=== PATIENT | female | born 1970 | race African-American/Black ===

== ENCOUNTER 2019-01-23 18:17 | Inpatient (IN) ==
[2019-01-23] MEDS ORDERED: Tetanus/Diphtheria Toxoid Adult Vaccine Inj 0.5 ML Vial IM ONE (20:13)
--- NOTE | 2019-01-23 20:32 | ED ---
HPI General Chief complaint: Extremity Injury, Lower Stated complaint: left knee pain Time Seen by Provider: 01/23/19 20:03 Source: patient Mode of arrival: ambulatory Limitations: no limitations History of Present Illness HPI narrative: 48yo F with PMH of lyme disease and arthritis here with c/o left knee pain after fall onto left knee while going up stairs today. Said she also hit her right tibia and has some pain there but pain is mainly in left knee. Unable to ambulate after. Said her patella was out and she pushed it back. Denies any head injury, LOC, chest pain, sob, n/v, abdominal pain, focal weakness. Related Data Home Medications Medication Instructions Recorded Confirmed omeprazole magnesium [Prilosec OTC] 20 mg PO DAILY 01/23/19 01/23/19 Previous Rx's Medication Instructions Recorded hydrocodone-acetaminophen [[place]] 1 tab PO Q6H #10 tab 01/25/19 Allergies Allergy/AdvReac Type Severity Reaction Status Date / Time penicillin G Allergy Mild HIVES Unverified 07/11/17 22:38 Review of Systems ROS: all other systems reviewed are negative [facility] Medical History Medical History GERD (gastroesophageal reflux disease) (Acute) Lyme disease (Acute) Family History Family History Mother Pancreatic cancer Social History Social History Substance History: No History of Abuse Second Hand Smoke Exposure: No Smoking Status: Current every day smoker Tobacco Type: Cigarettes How Often Do You Have a Drink Containing Alcohol: 2 to 4 times a month Recent Travel in [facility] within the Last 8 Weeks: No Recent Out of Country Travel within the Last 8 Weeks: No Exam Narrative Exam Narrative: GENERAL: 48yo F in moderate distress. SKIN: Focused skin assessment warm/dry. HEAD: Atraumatic. Normocephalic. EYES: Pupils equal and round. No scleral icterus. No injection or drainage. ENT: No nasal bleeding or discharge. Mucous membranes pink and moist. NECK: Trachea midline. No JVD. CARDIOVASCULAR: Regular rate and rhythm. No murmur appreciated. RESPIRATORY: No accessory muscle use. Clear to auscultation. Breath sounds equal bilaterally. GASTROINTESTINAL: Abdomen soft, non-tender, nondistended. MUSCULOSKELETAL: LLE: +Edema in left knee with some abrasions. TTP diffusely. DP 2+. Sensation intact. RLE: +Mild ttp right mid tibia with abrasions. DP 2+. Sensation intact. No ttp right knee. NEUROLOGICAL: Awake and alert. No obvious cranial nerve deficits. Motor grossly within normal limits. Normal speech. PSYCHIATRIC: Appropriate mood and affect; insight and judgment normal. Course Reevaluation(s) Reevaluation #1: I reviewed the patient's history, exam. Patient has a closed injury. Patient has a left patellar fracture with over 2 cm separation. I spoke with Dr. Garcia the orthopedist. She agreed to be the lactation consultant. I spoke with Dr. Moralez who has agreed to admit the patient. Time: 22:37 Initial Documented Vital Signs Temperature 98.3 F 01/23/19 18:24 Pulse Rate 111 H 01/23/19 18:24 Respiratory Rate 22 01/23/19 18:24 Blood Pressure 162/97 H 01/23/19 18:24 Pulse Oximetry 97 01/23/19 18:24 Last Documented Vital Signs Temperature 98.1 F 01/25/19 16:00 Pulse Rate 76 01/25/19 16:00 Respiratory Rate 19 01/25/19 16:00 Blood Pressure 136/71 01/25/19 16:00 Pulse Oximetry 97 01/25/19 16:00 Medical Decision Making MDM Narrative Medical decision making narrative: 48yo F with left knee pain after fall today. She does have alcohol on breath and admits to drinking 2 drinks at dinner but is clinically sober. Will obtain xray left knee and right tib/fib and update tetanus. Pt given percocet. Seen at [facility] and will be transfer to results pending and my PA will reevaluate and review results. Medical Screen Exam Complete: Yes Emergency Medical Condition: Yes Differential Diagnosis Differential Diagnosis: Ligament injury vs. contusion vs. fracture Lab Data Result diagrams: 01/24/19 06:45 01/24/19 06:45 Lab Results 01/23/19 01/23/19 01/23/19 Range/Units 22:16 22:16 22:16 WBC 8.3 (4.0-11.0) th/mm3 RBC 5.47 H (4.00-5.30) mil/mm3 Hgb 17.1 H (11.6-15.3) gm/dL Hct 49.3 H (35.0-46.0) % MCV 90.0 (80.0-100.0) fL MCH 31.3 (27.0-34.0) pg MCHC 34.7 (32.0-36.0) % RDW 14.1 (11.6-17.2) % Plt Count 382 (150-450) th/mm3 MPV 8.3 (7.0-11.0) fL Neut % (Auto) (16.0-70.0) % Lymph % (Auto) (9.0-44.0) % Maries % (Auto) (0.0-8.0) % Eos % (Auto) (0.0-4.0) % Baso % (Auto) (0.0-2.0) % Neut # (Auto) (1.8-7.7) th/mm3 Lymph # (Auto) (1.0-4.8) th/mm3 Maries # (Auto) (0.0-0.9) th/mm3 Eos # (Auto) (0.0-0.4) th/mm3 Baso # (Auto) (0.0-0.2) th/mm3 WBC Differential Differential Comment PT 9.9 (9.8-11.6) sec INR 1.0 Ratio APTT 28.0 (23.4-31.7) sec Sodium 145 (136-145) meq/L Potassium 4.2 (3.5-5.1) meq/L Chloride 110 H (98-107) meq/L Carbon Dioxide 29.1 (21.0-32.0) meq/L Anion Gap 6 (5-15) meq/L BUN 6 L (7-18) mg/dL Creatinine 0.60 (0.50-1.00) mg/dL Estimated GFR Greater than 89 (>89) mL/min Random Glucose 96 (74-106) mg/dL Calcium 8.8 (8.5-10.1) mg/dL Total Bilirubin (0.2-1.0) mg/dL AST (15-37) U/L ALT (10-53) U/L Alkaline Phosphatase (45-117) U/L Total Protein (6.4-8.2) g/dL Albumin (3.4-5.0) g/dL Blood Type Antibody Screen 01/23/19 01/24/19 01/24/19 Range/Units 22:16 06:45 06:45 WBC 9.5 (4.0-11.0) th/mm3 RBC 4.48 (4.00-5.30) mil/mm3 Hgb 14.2 D (11.6-15.3) gm/dL Hct 41.7 (35.0-46.0) % MCV 93.1 (80.0-100.0) fL MCH 31.6 (27.0-34.0) pg MCHC 34.0 (32.0-36.0) % RDW 13.9 (11.6-17.2) % Plt Count 313 (150-450) th/mm3 MPV 8.6 (7.0-11.0) fL Neut % (Auto) 54.8 (16.0-70.0) % Lymph % (Auto) 36.0 (9.0-44.0) % Maries % (Auto) 7.9 (0.0-8.0) % Eos % (Auto) 0.8 (0.0-4.0) % Baso % (Auto) 0.5 (0.0-2.0) % Neut # (Auto) 5.2 (1.8-7.7) th/mm3 Lymph # (Auto) 3.4 (1.0-4.8) th/mm3 Maries # (Auto) 0.7 (0.0-0.9) th/mm3 Eos # (Auto) 0.1 (0.0-0.4) th/mm3 Baso # (Auto) 0.0 (0.0-0.2) th/mm3 WBC Differential . Differential Comment Auto diff final PT (9.8-11.6) sec INR Ratio APTT (23.4-31.7) sec Sodium 143 (136-145) meq/L Potassium 3.6 (3.5-5.1) meq/L Chloride 109 H (98-107) meq/L Carbon Dioxide 25.2 (21.0-32.0) meq/L Anion Gap 9 (5-15) meq/L BUN 6 L (7-18) mg/dL Creatinine 0.58 (0.50-1.00) mg/dL Estimated GFR Greater than 89 (>89) mL/min Random Glucose 95 (74-106) mg/dL Calcium 8.4 L (8.5-10.1) mg/dL Total Bilirubin 0.5 (0.2-1.0) mg/dL AST 15 (15-37) U/L ALT 19 (10-53) U/L Alkaline Phosphatase 79 (45-117) U/L Total Protein 7.2 (6.4-8.2) g/dL Albumin 3.5 (3.4-5.0) g/dL Blood Type AB Negative Antibody Screen Negative Imaging Data Radiologist's impression: Knee X-Ray 01/23/19 20:13 CONCLUSION: Fracture of the mid to lower patella with comminution of the lower fragment. Separation of fragments as above. Chest X-Ray 01/23/19 21:55 CONCLUSION: No acute cardiopulmonary disease Knee X-Ray 01/24/19 00:00 CONCLUSION: Patellar fracture. Discharge Plan Discharge Disposition Patient Disposition: ED Admit(ED Internal Use Only) Discharge Condition Condition: Stable Discharge Order Discharge Orders: Discharge Order (Routine); Ordered 01/25/19 Ordered By: Tee Hua Orthopedic Clear for Discharge (Routine); Ordered 01/25/19 Ordered By: Tee Hua ED Use Only Admit Order (Routine); Ordered 01/23/19 Ordered By: Tylor Woodward Discharge Details Diagnosis: Closed fracture of left patella Physicians Team ED Provider: Nicki Harrington ED Midlevel Provider: Tylor Woodward Primary Care Provider: Jovanni Castaneda III Attending Provider: Dianne Ellison Other Providers: Katalina Garcia Status ED Status: Left Department Discharge Information Discharge Date/Time: 01/24/19 00:15
--- NOTE | 2019-01-23 21:25 | XR ---
EXAM DATE: 01/23/2019 9:20 PM EST AGE/SEX: 48 years / Female INDICATIONS: Left anterior knee pain after fall. CLINICAL DATA: This is the patient's initial encounter. Patient reports that signs and symptoms have been present for 1 day and indicates a pain score of 10/10. MEDICAL/SURGICAL HISTORY: None. None. COMPARISON: No prior exams available for comparison. FINDINGS: Views of the left knee demonstrates displaced and slightly comminuted fracture involving the mid/lowe r patella. There is separation of fragments measuring 2.2 cm. Soft tissue swelling and effusion. No r adiopaque foreign bodies seen. CONCLUSION: Fracture of the mid to lower patella with comminution of the lower fragment. Separation of fragments as above. Electronically signed by: Josh Prather MD Board Certified Radiologist 01/23/2019 9:24 PM EST
[2019-01-23] MEDS ORDERED: Morphine Inj 4 MG/ML Vial IV.PUSH ONE (22:17)
--- NOTE | 2019-01-23 22:19 | XR ---
EXAM DATE: 01/23/2019 10:13 PM EST AGE/SEX: 48 years / Female INDICATIONS: Trauma. CLINICAL DATA: This is the patient's initial encounter. Patient reports that signs and symptoms have been present for 1 day and indicates a pain score of 0/10. MEDICAL/SURGICAL HISTORY: None. None. COMPARISON: No prior exams available for comparison. FINDINGS: A single AP view of the chest demonstrates the lungs to be symmetrically aerated without evidence of mass, infiltrate or effusion. The cardiomediastinal contours are unremarkable. Osseous structures a re intact. CONCLUSION: No acute cardiopulmonary disease Electronically signed by: Josh Prather MD Board Certified Radiologist 01/23/2019 10:18 PM EST
[2019-01-23] MEDS ORDERED: Acetaminophen 325 MG Tablet PO PRN (22:33)
[2019-01-23] MEDS ORDERED: Bisacodyl 10 MG Supp RECTAL PRN (22:33)
[2019-01-23] MEDS ORDERED: Naloxone Inj 0.4 MG/ML Vial IV.PUSH PRN (22:33)
[2019-01-23 22:48] LABS: Prothrombin Time 9.9 sec (9.8-11.6)
[2019-01-23 22:49] LABS: Hematocrit 49.3 % (35.0-46.0); Hemoglobin 17.1 gm/dL (11.6-15.3); Mean Corpuscular HGB Conc 34.7 % (32.0-36.0); Mean Corpuscular Hemoglobin 31.3 pg (27.0-34.0); Mean Platelet Volume 8.3 fL (7.0-11.0); Platelet Count 382 th/mm3 (150-450); Red Blood Count 5.47 mil/mm3 (4.00-5.30); Red Cell Distribution Width 14.1 % (11.6-17.2); White Blood Count 8.3 th/mm3 (4.0-11.0)
[2019-01-23 22:54] LABS: Anion Gap 6 meq/L (5-15); Blood Urea Nitrogen 6 mg/dL (7-18); Calcium 8.8 mg/dL (8.5-10.1); Carbon Dioxide 29.1 meq/L (21.0-32.0); Chloride 110 meq/L (98-107); Glomerular Filtration Rate Greater Than 89 mL/min (>89); Glucose,Random 96 mg/dL (74-106); Potassium 4.2 meq/L (3.5-5.1); Sodium 145 meq/L (136-145)
[2019-01-23] MEDS ORDERED: HYDROmorphone PF Inj 2 MG/ML Vial IV.PUSH ONE (23:17)
[2019-01-23] MEDS: Sod Chloride 0.9% Inj 1,000 ML IV.CONT SCH (23:36)
--- NOTE | 2019-01-24 04:05 | P.HPIM ---
History of Present Illness Service: [facility] Primary Care Physician: Jovanni Castaneda III, MD Chief Complaint: left knee pain History of Present Illness: 48 y/o female with a history of gerd presented to the ER after falling up stairs on her left knee. She states she was walking up stairs when she tripped and landed on her left knee. She states the pain is a 8/ 10, constant throbbing, with no radiation or associated symptoms, worse with movement better with pain medications. She denies any chest pain, sob, fever or chills. Review of Systems Review of Systems: all other systems reviewed are negative [facility] Medical History Medical History GERD (gastroesophageal reflux disease) (Acute) Lyme disease (Acute) Family History Family History Mother Pancreatic cancer Social History Social History Substance History: No History of Abuse Second Hand Smoke Exposure: No Smoking Status: Current every day smoker Tobacco Type: Cigarettes How Often Do You Have a Drink Containing Alcohol: 2 to 3 times a week Recent Travel in [facility] within the Last 8 Weeks: No Recent Out of Country Travel within the Last 8 Weeks: No Immunization History Tetanus Immunization: >5 Years Medications and Allergies Allergies Allergy/AdvReac Type Severity Reaction Status Date / Time penicillin G Allergy Mild HIVES Unverified 07/11/17 22:38 Home Medications Medication Instructions Recorded Confirmed Type omeprazole magnesium [Prilosec OTC] 20 mg PO DAILY 01/23/19 01/23/19 History Active Medications: Active Medications Acetaminophen (Tylenol) 650 mg PO Q4H PRN PRN Reason: Temp > 100.4 Hydrocodone Bitart/Acetaminophen (Royal 5/325) 1 tab PO Q4H PRN PRN Reason: PAIN SCALE 3 TO 5 Hydrocodone Bitart/Acetaminophen ([place] 7.5/325) 1 tab PO Q4H PRN PRN Reason: PAIN SCALE 6 TO 10 Al Hydroxide/Mg Hydroxide (Milk Of Magnesia Liq) 30 ml PO Q12H PRN PRN Reason: Mild Constipation Bisacodyl (Dulcolax Supp) 10 mg RECTAL DAILY PRN PRN Reason: SEVERE CONSITIPATION Sodium Chloride (Ns Inj) 1,000 mls @ 100 mls/hr IV.CONT .Q10H TRELL Last Admin: 01/23/19 23:36 Dose: 100 mls/hr Lactulose (Lactulose Liq) 30 ml PO DAILY PRN PRN Reason: SEVERE CONSITIPATION Naloxone HCl (Narcan Inj) 0.4 mg IV.PUSH UNSCH PRN PRN Reason: SEE LABEL COMMENTS Ondansetron HCl (Zofran Inj) 4 mg IV.PUSH Q6H PRN PRN Reason: NAUSEA OR VOMITING Sennosides (Senokot) 17.2 mg PO Q12H PRN PRN Reason: Moderate Constipation Sodium Chloride (Ns Flush) 2 ml IV.FLUSH BID TRELL Sodium Chloride (Ns Flush) 2 ml IV.FLUSH PRN PRN PRN Reason: FLUSH AFTER USING IV ACCESS Physical Exam Vital signs: Vital Signs 01/23/19 18:24 01/23/19 22:19 01/23/19 22:34 Temperature 98.3 F Pulse Rate 111 H Respiratory Rate 22 15 20 Blood Pressure 162/97 H Pulse Oximetry 97 01/24/19 00:00 01/24/19 01:00 Temperature 98.7 F Pulse Rate 97 H Respiratory Rate 16 16 Blood Pressure 99/64 L Pulse Oximetry 94 L Intake & Output 01/23/19 01/23/19 01/24/19 06:59 18:59 06:59 Weight 49.895 kg Narrative: GENERAL: well nourished patient laying in bed, no distress SKIN: Warm and dry. EYES: No scleral icterus. No injection or drainage. NECK: Supple, trachea midline. No JVD or lymphadenopathy. CARDIOVASCULAR: Regular rate and rhythm without murmurs, gallops, or rubs. RESPIRATORY: Breath sounds equal bilaterally. No accessory muscle use. GASTROINTESTINAL: Abdomen soft, non-tender, nondistended. MUSCULOSKELETAL: Left knee with edema, limited ROM, CKS and ice cuff in place, pedal pulses palpable Results Labs CBC & Chem 7: 01/23/19 22:16 01/23/19 22:16 Imaging Impressions Knee X-Ray 01/23/19 20:13 CONCLUSION: Fracture of the mid to lower patella with comminution of the lower fragment. Separation of fragments as above. Chest X-Ray 01/23/19 21:55 CONCLUSION: No acute cardiopulmonary disease Caprini VTE Risk Assessment Caprini VTE Risk Assessment: No/Low Risk (score <= 1) Caprini Risk Assessment Model: Point Value = 1 Point Value = 2 Point Value = 3 Point Value = 5 Age 41-60 Minor surgery BMI > 25 kg/m2 Swollen legs Varicose veins or History of unexplained or recurrent spontaneous Oral contraceptives or hormone replacement Sepsis (< 1 month) Serious lung disease, including pneumonia (< 1 month) Abnormal pulmonary function Acute myocardial infarction Congestive heart failure (< 1 month) History of inflammatory bowel disease Medical patient at bed rest Age 61-74 Arthroscopic surgery Major open surgery (> 45 min) Laparoscopic surgery (> 45 min) Malignancy Confined to bed (> 72 hours) Immobilizing plaster cast Central venous access Age >= 75 History of VTE Family history of VTE Factor V Leiden Prothrombin [id number] Lupus anticoagulant Anticardiolipin antibodies Elevated serum homocysteine Heparin-induced thrombocytopenia Other congenital or acquired thrombophilia Stroke (< 1 month) Elective arthroplasty Hip, pelvis, or leg fracture Acute spinal cord injury (< 1 month) Prophylaxis Regimen: Total Risk Factor Score Risk Level Prophylaxis Regimen 0-1 Low Early ambulation 2 Moderate Order ONE of the following: *Sequential Compression Device (SCD) *Heparin 5000 units SQ BID 3-4 Higher Order ONE of the following medications: *Heparin 5000 units SQ TID *Enoxaparin/Lovenox 40 mg SQ daily (WT < 150 kg, CrCl > 30 mL/min) *Enoxaparin/Lovenox 30 mg SQ daily (WT < 150 kg, CrCl > 10-29 mL/min) *Enoxaparin/Lovenox 30 mg SQ BID (WT < 150 kg, CrCl > 30 mL/min) AND/OR *Sequential Compression Device (SCD) 5 or more Highest Order ONE of the following medications: *Heparin 5000 units SQ TID (Preferred with Epidurals) *Enoxaparin/Lovenox 40 mg SQ daily (WT < 150 kg, CrCl > 30 mL/min) *Enoxaparin/Lovenox 30 mg SQ daily (WT < 150 kg, CrCl > 10-29 mL/min) *Enoxaparin/Lovenox 30 mg SQ BID (WT < 150 kg, CrCl > 30 mL/min) AND *Sequential Compression Device (SCD) Assessment and Plan Plan 48 y/o female with a history of gerd presented to the ER after falling up stairs on her left knee. She states she was walking up stairs when she tripped and landed on her left knee. Left patellar fracture Knee x ray reviewed and shows Fracture of the mid to lower patella with comminution of the lower fragment. -Ortho consult -IV Dilaudid for pain -NPO, IVF -CKS and ICE CUFF cont Gerd, chronic -Resume home Prilosec DVT prophylaxis: SCDs H&P: Quality VTE Deep Vein Thrombosis/Pulmonary Embolism Present on Admission: No
[2019-01-24] MEDS: HYDROmorphone PF Inj 2 MG/ML Vial IV.PUSH PRN ×3 (04:49→22:38)
[2019-01-24 07:40] LABS: Baso % (Auto) 0.5 % (0.0-2.0); Eos # (Auto) 0.1 th/mm3 (0.0-0.4); Eos % (Auto) 0.8 % (0.0-4.0); Hematocrit 41.7 % (35.0-46.0); Hemoglobin 14.2 gm/dL (11.6-15.3); Lymph # (Auto) 3.4 th/mm3 (1.0-4.8); Mean Corpuscular Hemoglobin 31.6 pg (27.0-34.0); Mean Corpuscular Volume 93.1 fL (80.0-100.0); Mean Platelet Volume 8.6 fL (7.0-11.0); Mono # (Auto) 0.7 th/mm3 (0.0-0.9); Mono % (Auto) 7.9 % (0.0-8.0); Neut # (Auto) 5.2 th/mm3 (1.8-7.7); Neut % (Auto) 54.8 % (16.0-70.0); Platelet Count 313 th/mm3 (150-450); Red Blood Count 4.48 mil/mm3 (4.00-5.30); Red Cell Distribution Width 13.9 % (11.6-17.2); White Blood Count 9.5 th/mm3 (4.0-11.0)
[2019-01-24 08:08] LABS: Albumin 3.5 g/dL (3.4-5.0); Anion Gap 9 meq/L (5-15); Aspartate Aminotransferase 15 U/L (15-37); Blood Urea Nitrogen 6 mg/dL (7-18); Calcium 8.4 mg/dL (8.5-10.1); Carbon Dioxide 25.2 meq/L (21.0-32.0); Chloride 109 meq/L (98-107); Glomerular Filtration Rate Greater Than 89 mL/min (>89); Glucose,Random 95 mg/dL (74-106); Potassium 3.6 meq/L (3.5-5.1); Sodium 143 meq/L (136-145)
[2019-01-24 08:12] LABS: Alanine Aminotransferase 19 U/L (10-53); Alkaline Phosphatase 79 U/L (45-117); Total Protein 7.2 g/dL (6.4-8.2)
[2019-01-24] MEDS: Pantoprazole Sodium 20 MG DR Tablet PO SCH (09:04)
[2019-01-24] MEDS: Sod Chloride 0.9% Inj 1,000 ML IV.CONT SCH ×2 (10:04→20:01)
[2019-01-24] MEDS ORDERED: Chlorhexidine Gluconate 2% 1 Pack (2 Cloths) TOPICAL ONE (15:05)
[2019-01-24] MEDS ORDERED: Metoprolol Tartrate 25 MG Tablet PO ONE (15:05)
--- NOTE | 2019-01-24 15:18 | P.PNIM ---
Subjective Interval history: Patient seen earlier today. Follow-up visit for closed fracture of the left patella. Patient seen and examined. Reports she continues to have pain left lower extremity. States that she has numbness earlier on the left foot however it disappeared. States she is able to move her toes without any problem. She is concerned that she is going to surgery but she wants her family to be in prior to her having the surgical procedure as per orthopedic surgeon's recommendation. Otherwise,denies SOB/ dyspnea. Denies chest pain, palpitations, headaches, dizziness. Denies fevers, chills, n/ v/d. Denies dysuria. Physical Exam Vital signs: Vital Signs 01/23/19 18:24 01/23/19 22:19 01/23/19 22:34 Temperature 98.3 F Pulse Rate 111 H Respiratory Rate 22 15 20 Blood Pressure 162/97 H Pulse Oximetry 97 01/24/19 00:00 01/24/19 01:00 01/24/19 04:44 Temperature 98.7 F 98.5 F Pulse Rate 97 H 76 Respiratory Rate 16 16 16 Blood Pressure 99/64 L 121/64 Pulse Oximetry 94 L 92 L 01/24/19 08:00 01/24/19 11:47 Temperature 98.0 F 98.0 F Pulse Rate 66 64 Respiratory Rate 16 16 Blood Pressure 110/57 L 131/72 Pulse Oximetry 96 90 L Intake & Output 01/23/19 01/24/19 01/24/19 18:59 06:59 18:59 Intake Total 1000 / 1000 Balance 1000 / 1000 Weight 49.895 kg Intake: IV 1000 / 1000 NS Inj 1,000 ML @ 100 mls/hr IV 1000 / 1000 .CONT .Q10H [facility] Rx#:[id number] Narrative: GENERAL: well nourished patient laying in bed, no distress SKIN: Warm and dry. EYES: No scleral icterus. No injection or drainage. NECK: Supple, trachea midline. No JVD or lymphadenopathy. CARDIOVASCULAR: Regular rate and rhythm without murmurs, gallops, or rubs. RESPIRATORY: Breath sounds equal bilaterally. No accessory muscle use. GASTROINTESTINAL: Abdomen soft, non-tender, nondistended. MUSCULOSKELETAL: Left knee with edema, limited ROM, CKS and ice cuff in place, pedal pulses palpable. Able to wiggle toes. NEURO: Alert and awake. No focal neuro deficit. Normal speech. Results Labs CBC & Chem 7: 01/24/19 06:45 01/24/19 06:45 Imaging Imaging: Impressions Knee X-Ray 01/23/19 20:13 CONCLUSION: Fracture of the mid to lower patella with comminution of the lower fragment. Separation of fragments as above. Chest X-Ray 01/23/19 21:55 CONCLUSION: No acute cardiopulmonary disease Assessment and Plan Plan 48 y/o female with a history of GERD presented to the ER after falling up stairs on her left knee. She states she was walking up stairs when she tripped and landed on her left knee. Left patellar fracture Knee x ray reviewed and shows Fracture of the mid to lower patella with comminution of the lower fragment. -Ortho consult, appreciate recommendations, possible surgical procedure today. -IV Dilaudid for pain -Keep patient NPO, IVF -CKS and ICE CUFF cont Gerd, chronic -Resume home Prilosec DVT prophylaxis SCDs for now, post surgical procedure will be decided by Ortho Full code Discussed Condition With: Patient, nursing, Dr. Loya Discharge Planning: Plan to DC home with C vs SNF when clinically improved. Pending orthopedic procedure. Progress Note: Quality VTE Deep Vein Thrombosis/Pulmonary Embolism Present on Admission: No
[2019-01-24] MEDS ORDERED: fentaNYL Citrate Inj 250 MCG/5 ML Ampul ONE ×2 (15:22→16:58)
[2019-01-24] MEDS ORDERED: Sodium Chlor 0.9% Inj 500 ML IV.SIG ONE (16:00)
[2019-01-24] MEDS ORDERED: Phenylephrine/NS 1000 MCG/10ML Syringe IV.PUSH ONE (16:24)
[2019-01-24] MEDS ORDERED: Lidocaine PF 1% Inj 5 ML Syringe OTHER ONE (16:24)
[2019-01-24] MEDS ORDERED: Post-op Orders (for Pharmacy) OTHER STA (17:05)
[2019-01-24] MEDS ORDERED: Temazepam 15 MG Capsule PO PRN (17:05)
[2019-01-24] MEDS ORDERED: Morphine Inj 4 MG/ML Vial IV.PUSH PRN (17:05)
--- NOTE | 2019-01-24 17:05 | P.CONOP ---
[facility] Orthopedics Consult Note - [facility] Consult date: 01/24/19 Consult reason: fracture Chief complaint: Left Patella Fracture Narrative: This patient is a 48-year-old female who slipped and fell landing directly on her left knee late yesterday afternoon. She was brought to the emergency room and found to have evidence of a comminuted and significantly displaced left patella fracture. I have been asked to see her in consultation regarding the same Review of Systems All other systems reviewed negative except as stated in [facility] PMFSH - History History Provided By: Patient - Medical History Medical History: Medical History (Last Reviewed 01/24/19 @ 04:18 by SHELIA Roper) GERD (gastroesophageal reflux disease) Lyme disease - Family History Family History: Family History (Last Reviewed 01/24/19 @ 04:19 by SHELIA Roper) Mother Pancreatic cancer - Tobacco History Second Hand Smoke Exposure: No Tobacco Use In Past 30 Days: Yes Smoking Status: Current every day smoker Tobacco Type: Cigarettes - Alcohol History How Often Do You Have a Drink Containing Alcohol: 2 to 3 times a week - Substance Use History Substance History: No History of Abuse - Travel History Recent Travel in the [place] Within the Last 8 Weeks: No Recent Travel Out of the Country Within the Last 8 Weeks: No - Immunization History Tetanus Immunization: >5 Years Medications and Allergies Active Medications: Active Medications Acetaminophen (Tylenol) 650 mg PO Q4H PRN PRN Reason: Temp > 100.4 Hydrocodone Bitart/Acetaminophen ([place] 5/325) 1 tab PO Q4H PRN PRN Reason: PAIN SCALE 3 TO 5 Hydrocodone Bitart/Acetaminophen ([place] 7.5/325) 1 tab PO Q4H PRN PRN Reason: PAIN SCALE 6 TO 10 Al Hydroxide/Mg Hydroxide (Milk Of Donny Liq) 30 ml PO Q12H PRN PRN Reason: Mild Constipation Bisacodyl (Dulcolax Supp) 10 mg RECTAL DAILY PRN PRN Reason: SEVERE CONSITIPATION Hydromorphone HCl (Dilaudid Pf Inj) 2 mg IV.PUSH Q4H PRN PRN Reason: pain 1 to 10 when npo Last Admin: 01/24/19 10:33 Dose: 2 mg Sodium Chloride (Ns Inj) 1,000 mls @ 100 mls/hr IV.CONT .Q10H TRELL Last Infusion: 01/24/19 14:02 Dose: 0 mls/hr Lactated Ringer's (Lr 1000 Ml Inj) 1,000 mls @ 30 mls/hr IV.SIG .Q24H [facility] Stop: 01/25/19 15:14 Last Admin: 01/24/19 15:07 Dose: 30 mls/hr Sodium Chloride (Ns Inj) 500 mls @ 30 mls/hr IV.SIG .Q10H ONE Stop: 01/25/19 08:39 Lactulose (Lactulose Liq) 30 ml PO DAILY PRN PRN Reason: SEVERE CONSITIPATION Naloxone HCl (Narcan Inj) 0.4 mg IV.PUSH UNSCH PRN PRN Reason: SEE LABEL COMMENTS Ondansetron HCl (Zofran Inj) 4 mg IV.PUSH Q6H PRN PRN Reason: NAUSEA OR VOMITING Last Admin: 01/24/19 11:16 Dose: 4 mg Pantoprazole Sodium (Protonix) 20 mg PO DAILY [facility] Last Admin: 01/24/19 09:04 Dose: Not Given Sennosides (Senokot) 17.2 mg PO Q12H PRN PRN Reason: Moderate Constipation Sodium Chloride (Ns Flush) 2 ml IV.FLUSH BID [facility] Last Admin: 01/24/19 09:04 Dose: Not Given Sodium Chloride (Ns Flush) 2 ml IV.FLUSH PRN PRN PRN Reason: FLUSH AFTER USING IV ACCESS Allergies Allergy/AdvReac Type Severity Reaction Status Date / Time penicillin G Allergy Mild HIVES Unverified 07/11/17 22:38 Home Medications Medication Instructions Recorded Confirmed Type omeprazole magnesium [Prilosec OTC] 20 mg PO DAILY 01/23/19 01/23/19 History Exam Vital signs: Vital Signs 01/23/19 18:24 01/23/19 22:19 01/23/19 22:34 Temperature 98.3 F Pulse Rate 111 H Respiratory Rate 22 15 20 Blood Pressure 162/97 H Pulse Oximetry 97 01/24/19 00:00 01/24/19 01:00 01/24/19 04:44 Temperature 98.7 F 98.5 F Pulse Rate 97 H 76 Respiratory Rate 16 16 16 Blood Pressure 99/64 L 121/64 Pulse Oximetry 94 L 92 L 01/24/19 08:00 01/24/19 11:47 Temperature 98.0 F 98.0 F Pulse Rate 66 64 Respiratory Rate 16 16 Blood Pressure 110/57 L 131/72 Pulse Oximetry 96 90 L Intake & Output 01/23/19 01/24/19 01/24/19 18:59 06:59 18:59 Intake Total 1000 / 1000 Balance 1000 / 1000 Weight 49.895 kg Intake: IV 1000 / 1000 NS Inj 1,000 ML @ 100 mls/hr IV 1000 / 1000 .CONT .Q10H TRELL Rx#:[id number] Narrative: HEENT: Normocephalic atraumatic pupils equal round reactive. NECK: Supple. No abnormal masses. Full range of motion. CHEST: Clear to auscultation with no rales or rhonchi's or wheezes. HEART: Regular rate and rhythm. No murmurs. ABDOMEN: Soft, nontender, no masses. Normal active bowel sounds. GENITOURINARY: Deferred MUSCULOSKELETAL: Left knee is in a splint. Mild swelling. Sensation distally is normal. Alignment satisfactory. Results - Labs Result Diagrams: 01/24/19 06:45 01/24/19 06:45 Labs: Laboratory Results - last 24 hr 01/23/19 01/23/19 01/23/19 22:16 22:16 22:16 WBC 8.3 RBC 5.47 H Hgb 17.1 H Hct 49.3 H MCV 90.0 MCH 31.3 MCHC 34.7 RDW 14.1 Plt Count 382 MPV 8.3 Neut % (Auto) Lymph % (Auto) [place] % (Auto) Eos % (Auto) Baso % (Auto) Neut # (Auto) Lymph # (Auto) [place] # (Auto) Eos # (Auto) Baso # (Auto) WBC Differential Differential Comment PT 9.9 INR 1.0 APTT 28.0 Sodium 145 Potassium 4.2 Chloride 110 H Carbon Dioxide 29.1 Anion Gap 6 BUN 6 L Creatinine 0.60 Estimated GFR Greater than 89 Random Glucose 96 Calcium 8.8 Total Bilirubin AST ALT Alkaline Phosphatase Total Protein Albumin Blood Type Antibody Screen 01/23/19 01/24/19 01/24/19 22:16 06:45 06:45 WBC 9.5 RBC 4.48 Hgb 14.2 D Hct 41.7 MCV 93.1 MCH 31.6 MCHC 34.0 RDW 13.9 Plt Count 313 MPV 8.6 Neut % (Auto) 54.8 Lymph % (Auto) 36.0 [place] % (Auto) 7.9 Eos % (Auto) 0.8 Baso % (Auto) 0.5 Neut # (Auto) 5.2 Lymph # (Auto) 3.4 [place] # (Auto) 0.7 Eos # (Auto) 0.1 Baso # (Auto) 0.0 WBC Differential . Differential Comment Auto diff final PT INR APTT Sodium 143 Potassium 3.6 Chloride 109 H Carbon Dioxide 25.2 Anion Gap 9 BUN 6 L Creatinine 0.58 Estimated GFR Greater than 89 Random Glucose 95 Calcium 8.4 L Total Bilirubin 0.5 AST 15 ALT 19 Alkaline Phosphatase 79 Total Protein 7.2 Albumin 3.5 Blood Type AB Negative Antibody Screen Negative - Diagnostic results Imaging: Impressions Knee X-Ray 01/23/19 20:13 CONCLUSION: Fracture of the mid to lower patella with comminution of the lower fragment. Separation of fragments as above. I have reviewed the x-ray and reviewed the radiologist Interpretation. This shows evidence of a highly comminuted fracture with displacement involving the left patella Chest X-Ray 01/23/19 21:55 CONCLUSION: No acute cardiopulmonary disease Assessment and Plan - Assessment and Plan Fracture left patella, comminuted. Surgery: Open treatment and internal fixation left patella fracture with partial colectomy. POD #0 PLAN: Weightbearing as tolerated with a knee splint after surgery. [place] as needed for pain. Consider aspirin or Lovenox for anticoagulation for DVT prophylaxis, per medical advice. Anticipate discharge on Monday. Anticipate 2 months weightbearing as tolerated with a knee immobilizer/splint. Consent: There are risks of the surgery including infection, bleeding, loss of motion, continued pain, need for further surgery, neurologic or vascular injury , loss of fixation requiring revision repair. I explained this to the patient and her . They agree and wish to proceed forward with surgery as outlined above
[2019-01-24] MEDS ORDERED: Ropivacaine 0.5% PF Inj 20 ML Vial ONE (17:10)
--- NOTE | 2019-01-24 17:16 | P.OP ---
- Preoperative Diagnosis (1) Closed fracture of left patella - Postoperative Diagnosis (1) Closed fracture of left patella Date of procedure: 01/24/19 Procedure: Open treatment and internal fixation left patella fracture. Partial patellectomy Anesthesia: SURESH Surgeon: Tee Hua MD Senior Business Development Analyst: Cheyenne Gee PA-C Operation and Findings: EBL: 100 cc INDICATION: This patient is a 48-year-old female who fell yesterday sustaining a comminuted displaced fracture of the left patella involving mostly the lower third of the patella. She presents for open treatment and internal fixation versus partial patellectomy NOTE: Cheyenne Gee PA-C was present for the entire surgical procedure as my first dyer. In my medical opinion her skill and care was necessary for the proper management of this patient. PROCEDURE: The patient brought to the operating room and anesthetized in the supine position. The left leg was visualized under fluoroscopy. Antibiotics were given within an one hour time window and a timeout was done. After exsanguination, the interval tourniquet was inflated to 250 mmHg. An anterior incision was made. The patella was exposed. Callus was curetted. The fragment was brought into reduced position and held. A partial patellectomy was necessary. Multiple clamps were utilized using fluoroscopy to confirm that there was good continuity of the articular surface. We used a advancement of the inferior pole of the patella. Multiple drill holes were made. 3 #2 fiber wires were placed in a modified Zamorano fashion into the patella tendon. 4 drill holes were placed within the cephalad portion of the patella. A Glez suture passer was utilized. The #2 FiberWire were brought out and tied over a bridge cephalad. The fracture was then brought together nicely. This was tightened and the suture ends were cut. We could easily flex the knee approximately 70 degrees and there was no separation across fragments. An intraoperative x-ray was obtained The wound was irrigated copiously. The retinaculum was closed with #1 Vicryl suture. Subcu tissue 2-0 Vicryl suture and skin with running intradermal 3-0 Vicryl followed by Steri-Strips and benzoin A posterior splint was fitted and applied. The patient was awakened and taken to recovery room satisfactory condition. The sponge count and needle count and sponge counts were all correct FINDINGS: There was a highly comminuted fracture involving the inferior pole of the patella. Final fixation appeared to be satisfactory.
--- NOTE | 2019-01-24 17:24 | ECG ---
Date Performed: 01/24/2019 Time Performed: 08:13:03 PTAGE: 48 years EKG: Sinus rhythm POSSIBLE RIGHT VENTRICULAR CONDUCTION DELAY BORDERLINE ECG PREVIOUS TRACING : 12/30/2010 01.16 Since the previous tracing, no significant change noted DOCTOR: Marc Calvo Interpretating Date/Time 01/24/2019 17:22:53
[2019-01-24] MEDS ORDERED: *morphine SULFATE 10 MG/ML PERIprocedure ONLY ONE (19:06)
[2019-01-24] MEDS ORDERED: *Meperidine Inj 25 MG/ML Vial PERIprocedural Use ONLY ONE (19:10)
--- NOTE | 2019-01-24 19:51 | XR ---
EXAM DATE: 01/24/2019 7:48 PM EST AGE/SEX: 48 years / Female INDICATIONS: ORIF left patella fracture. CLINICAL DATA: This is the patient's subsequent encounter. Patient reports that signs and symptoms h ave been present for 1 day and indicates a pain score of Nonresponsive. MEDICAL/SURGICAL HISTORY: Non-responsive. Non-responsive. COMPARISON: [facility] [place], KNEE COMPLETE LEFT 4V, 01/23/2019. . FINDINGS: 2 views from the OR have been obtained. The knee joint is normally aligned. On the lateral view of th e patella appears small. There is a patellar fracture seen on the prior exam. It appears some of the inferior fragments have been removed. No surgical hardware is seen on these 2 images. CONCLUSION: Patellar fracture. Electronically signed by: Ross Wright MD Board Certified Radiologist 01/24/2019 7:50 PM EST
[2019-01-24] MEDS: Multivitamin/Minerals Therapeutic Tablet PO SCH (21:05)
[2019-01-24] MEDS: Senna/Docusate Sodium 8.6/50 MG Tablet PO SCH (21:06)
[2019-01-25] MEDS: HYDROmorphone PF Inj 2 MG/ML Vial IV.PUSH PRN ×4 (05:02→19:52)
--- NOTE | 2019-01-25 07:56 | P.PNOP ---
Subjective Interval history: Doing well. Moderate pain. Physical Exam Vital signs: Vital Signs 01/24/19 08:00 01/24/19 11:47 01/24/19 18:47 Temperature 98.0 F 98.0 F 97.4 F L Pulse Rate 66 64 84 Respiratory Rate 16 16 12 Blood Pressure 110/57 L 131/72 122/60 Pulse Oximetry 96 90 L 99 01/24/19 19:00 01/24/19 19:15 01/24/19 19:30 Temperature Pulse Rate 66 66 65 Respiratory Rate 18 18 16 Blood Pressure 127/55 L 118/59 L 114/56 L Pulse Oximetry 99 99 98 01/24/19 19:45 01/24/19 20:00 01/24/19 20:15 Temperature 97.4 F L Pulse Rate 67 64 67 Respiratory Rate 18 18 18 Blood Pressure 115/55 L 120/62 120/62 Pulse Oximetry 98 98 97 01/24/19 20:28 01/25/19 00:20 01/25/19 03:20 Temperature 97.7 F 97.9 F 97.8 F Pulse Rate 68 72 67 Respiratory Rate 18 18 18 Blood Pressure 133/72 137/64 133/78 Pulse Oximetry 96 97 96 Intake & Output 01/24/19 01/25/19 01/25/19 18:59 06:59 18:59 Intake Total 2700 / 2700 840 / 840 Output Total 10 / 10 Balance 2690 / 2690 840 / 840 Weight 54.8 kg Intake: IV 2100 / 2100 600 / 600 NS Inj 1,000 ML @ 100 mls/hr IV 1000 / 1000 400 / 400 .CONT .Q10H TRELL Rx#:[id number] LR 1000 mL Inj 1,000 ML @ 30 1000 / 1000 mls/hr IV.SIG .Q24H TRELL Rx#: [id number] Ancef Inj 1,000 MG In NS Inj 100 / 100 200 / 200 100 ML @ 200 mls/hr IV.SIG Q6H TRELL Rx#:[id number] Oral 240 / 240 Anesthesia Amount 600 / 600 Output: Estimated Blood Loss 10 / 10 Other: # Voids 1 Date of Last Bowel Movement 01/23/19 # Bowel Movements 0 Weight On Admission 51.7 kg Narrative: Neuro exam normal. Splint in place and dry. No drainage. Results - Labs CBC & Chem 7: 01/24/19 06:45 01/24/19 06:45 Laboratory Results - last 24 hr 01/24/19 01/24/19 06:45 06:45 WBC 9.5 RBC 4.48 Hgb 14.2 D Hct 41.7 MCV 93.1 MCH 31.6 MCHC 34.0 RDW 13.9 Plt Count 313 MPV 8.6 Neut % (Auto) 54.8 Lymph % (Auto) 36.0 [place] % (Auto) 7.9 Eos % (Auto) 0.8 Baso % (Auto) 0.5 Neut # (Auto) 5.2 Lymph # (Auto) 3.4 [place] # (Auto) 0.7 Eos # (Auto) 0.1 Baso # (Auto) 0.0 WBC Differential . Differential Comment Auto diff final Sodium 143 Potassium 3.6 Chloride 109 H Carbon Dioxide 25.2 Anion Gap 9 BUN 6 L Creatinine 0.58 Estimated GFR Greater than 89 Random Glucose 95 Calcium 8.4 L Total Bilirubin 0.5 AST 15 ALT 19 Alkaline Phosphatase 79 Total Protein 7.2 Albumin 3.5 - Imaging Impressions Knee X-Ray 01/24/19 00:00 CONCLUSION: Patellar fracture. Assessment and Plan - Assessment and Plan Fracture left patella, comminuted. Surgery: Open treatment and internal fixation left patella fracture with partial patellectomy POD #1 PLAN: Weightbearing as tolerated with a knee splint after surgery. [place] as needed for pain written. Patient requesting different medication to go home with. Patient indicates history of yeast infection after antibiotics and requesting medication. I will defer to medical. Patient indicates history of nausea and once nausea medication to go home. I will defer to medical. Consider aspirin or Lovenox for anticoagulation for DVT prophylaxis, per medical advice. Anticipate discharge this morning. Orthopedically stable for discharge Anticipate 2 months weightbearing as tolerated with a knee immobilizer/splint. Follow-up in 2 weeks. I have requested appointment to be scheduled before she leaves.
[2019-01-25] MEDS: Multivitamin/Minerals Therapeutic Tablet PO SCH ×2 (08:04→23:00)
[2019-01-25] MEDS: Senna/Docusate Sodium 8.6/50 MG Tablet PO SCH ×2 (08:04→23:00)
[2019-01-25] MEDS: Pantoprazole Sodium 20 MG DR Tablet PO SCH (08:04)
--- NOTE | 2019-01-25 08:21 | P.PNIM ---
Subjective Interval history: in no acute distress. had some nausea earlier. pain to the left knee is moderate. Physical Exam Vital signs: Vital Signs 01/24/19 11:47 01/24/19 18:47 01/24/19 19:00 Temperature 98.0 F 97.4 F L Pulse Rate 64 84 66 Respiratory Rate 16 12 18 Blood Pressure 131/72 122/60 127/55 L Pulse Oximetry 90 L 99 99 01/24/19 19:15 01/24/19 19:30 01/24/19 19:45 Temperature Pulse Rate 66 65 67 Respiratory Rate 18 16 18 Blood Pressure 118/59 L 114/56 L 115/55 L Pulse Oximetry 99 98 98 01/24/19 20:00 01/24/19 20:15 01/24/19 20:28 Temperature 97.4 F L 97.7 F Pulse Rate 64 67 68 Respiratory Rate 18 18 18 Blood Pressure 120/62 120/62 133/72 Pulse Oximetry 98 97 96 01/25/19 00:20 01/25/19 03:20 Temperature 97.9 F 97.8 F Pulse Rate 72 67 Respiratory Rate 18 18 Blood Pressure 137/64 133/78 Pulse Oximetry 97 96 Intake & Output 01/24/19 01/25/19 01/25/19 18:59 06:59 18:59 Intake Total 2700 / 2700 840 / 840 Output Total Balance 2690 / 2690 840 / 840 Weight 54.8 kg Intake: IV 2100 / 2100 600 / 600 NS Inj 1,000 ML @ 100 mls/hr IV 1000 / 1000 400 / 400 .CONT .Q10H TRELL Rx#:[id number] LR 1000 mL Inj 1,000 ML @ 30 1000 / 1000 mls/hr IV.SIG .Q24H TRELL Rx#: [id number] Ancef Inj 1,000 MG In NS Inj 100 / 100 200 / 200 100 ML @ 200 mls/hr IV.SIG Q6H TRELL Rx#:[id number] Oral 240 / 240 Anesthesia Amount 600 / 600 Output: Estimated Blood Loss Other: # Voids 1 Date of Last Bowel Movement 01/23/19 # Bowel Movements 0 Weight On Admission 51.7 kg Constitutional no acute distress Routine Respiratory Exam Present CTA bilaterally Routine Cardiovascular Exam Present RRR Routine Abdominal Exam Present soft Routine Extremities Exam Comments: left knee covered with clean dressing. Routine Neurological Exam Present alert and oriented X3 Results Labs CBC & Chem 7: 01/24/19 06:45 01/24/19 06:45 Imaging Imaging: Impressions Knee X-Ray 01/24/19 00:00 CONCLUSION: Patellar fracture. Assessment and Plan Plan A/P Left patellar fracture ortho consulted; s/p open reduction/ internal fixation continue with pain control- weight bearing as tolerated. cleared for discharge per ortho. continue with pain control. Gerd, chronic -Resumed home Prilosec DVT prophylaxis with lovenox. Full code Discharge Planning: home within the next 24 hrs. Progress Note: Quality VTE Deep Vein Thrombosis/Pulmonary Embolism Present on Admission: No
[2019-01-26] MEDS: HYDROmorphone PF Inj 2 MG/ML Vial IV.PUSH PRN ×3 (00:01→08:25)
--- NOTE | 2019-01-26 08:08 | P.PNOP ---
Subjective Interval history: POD #2 Left ORIF Patella Patient is awake and alert states her pain is adequately controlled. Patient feels ready for discharge to home today. Patient has several questions about her operation and the lengthy amount of time was spent with her. Patient states that she has a dog at home and is very worried about the dog jumping on her knee. Per patient's insistent request we will put an order in for a CKS on top of the long leg splint Physical Exam Vital signs: Vital Signs 01/25/19 08:00 01/25/19 12:00 01/25/19 16:00 Temperature 97.8 F 97.4 F L 98.1 F Pulse Rate 83 70 76 Respiratory Rate 19 20 19 Blood Pressure 121/75 129/61 136/71 Pulse Oximetry 95 97 97 01/25/19 19:57 01/25/19 23:12 Temperature 98.5 F 98.2 F Pulse Rate 80 72 Respiratory Rate 20 18 Blood Pressure 140/68 116/68 Pulse Oximetry 96 96 Intake & Output 01/25/19 01/26/19 01/26/19 18:59 06:59 18:59 Intake Total 720 / 720 Balance 720 / 720 Weight 54 kg Intake: Oral 720 / 720 Other: # Voids 4 3 Date of Last Bowel Movement 01/23/01/23/19 Narrative: Neuro exam normal. Splint in place and dry. No drainage. Results - Labs CBC & Chem 7: 01/24/ 06:45 01/24/19 06:45 Assessment and Plan - Assessment and Plan POD #2 Open treatment and internal fixation left patella fracture with partial patellectomy PLAN: Weightbearing as tolerated with a knee splint after surgery. CKS will be ordered for extra protection as we can not find her old one in her room [place] as needed for pain written. Patient requesting different medication to go home with. Patient indicates history of yeast infection after antibiotics and requesting medication. I will defer to medical. Patient indicates history of nausea and once nausea medication to go home. I will defer to medical. Consider aspirin or Lovenox for anticoagulation for DVT prophylaxis, per medical advice. Clear for discharge from an orthopedic standpoint to home with [facility] Anticipate 2 months weightbearing as tolerated with a knee immobilizer/splint. Follow-up in [address] Hua requested appointment to be scheduled before she leaves.
[2019-01-26] MEDS: Pantoprazole Sodium 20 MG DR Tablet PO SCH (08:24)
[2019-01-26] MEDS: Senna/Docusate Sodium 8.6/50 MG Tablet PO SCH (08:24)
[2019-01-26] MEDS: Multivitamin/Minerals Therapeutic Tablet PO SCH (08:25)
--- NOTE | 2019-01-26 10:29 | P.PNIM ---
Subjective Interval history: in no acute distress. looks better today- still with some pain and on and off nausea. no other complaints. Physical Exam Vital signs: Vital Signs 01/25/19 12:00 01/25/19 16:00 01/25/19 19:57 Temperature 97.4 F L 98.1 F 98.5 F Pulse Rate 70 76 80 Respiratory Rate 20 19 20 Blood Pressure 129/61 136/71 140/68 Pulse Oximetry 97 97 96 01/25/19 23:12 01/26/19 08:00 Temperature 98.2 F 98.2 F Pulse Rate 72 81 Respiratory Rate 18 17 Blood Pressure 116/68 136/75 Pulse Oximetry 96 96 Intake & Output 01/25/19 01/26/19 01/26/19 18:59 06:59 18:59 Intake Total 720 / 720 Balance 720 / 720 Weight 54 kg Intake: Oral 720 / 720 Other: # Voids 4 1 Date of Last Bowel Movement 01/23/19 01/23/19 01/23/19 Constitutional no acute distress Routine Respiratory Exam Present CTA bilaterally Routine Cardiovascular Exam Present RRR Routine Abdominal Exam Present soft Routine Extremities Exam Comments: left leg covered with clean dressing. Routine Neurological Exam Present alert and oriented X3 Results Labs CBC & Chem 7: 01/24/19 06:45 01/24/19 06:45 Assessment and Plan Plan A/P Left patellar fracture ortho consulted; s/p open reduction/ internal fixation continue with pain control- weight bearing as tolerated. cleared for discharge per ortho. continue with pain control. Gerd, chronic -Resumed home Prilosec DVT prophylaxis with aspirin po as outpatient. Full code Discharge Planning: home this afternoon. see med list. d/w the patient and RN. [place] was consulted before discharge. Progress Note: Quality VTE Deep Vein Thrombosis/Pulmonary Embolism Present on Admission: No
--- NOTE | 2019-01-26 10:33 | P.DS ---
DS: Providers Date of admission: 01/24/19 10:59 Primary care physician: Jovanni Castaneda III, MD Consults: 01/23/19 22:33 Consult to Orthopedic Surgery Routine Consulting Provider: Katalina Garcia Reason for Consultation: Patellar fracture. Notified:: Service Spoke with:: khadijah Date Notified:: 01/23/19 Time Notified:: 23:41 Ordering Provider: FLAVIA Brief History from admission: 48 y/o female with a history of gerd presented to the ER after falling up stairs on her left knee. She states she was walking up stairs when she tripped and landed on her left knee. She states the pain is a 8/ 10, constant throbbing, with no radiation or associated symptoms, worse with movement better with pain medications. She denies any chest pain, sob, fever or chills. DS: Summary patient was admitted with left patella fracture. she underwent ORIF. she was cleared by ortho for discharge. she will be discharged home with f/u by her pcp and ortho. Time Spent with Patient Total time spent providing and/or coordinating discharge services: Quality: VTE Deep Vein Thrombosis/Pulmonary Embolism Present on Admission: No Exam Narrative Exam Narrative: patient in no acute distress. S1/S2 heard/abdomen is soft/ bilateral air entry is present/ left leg covered with clean dressing/ patient is awake and fully oriented. Results Impressions ITS Impressions Chest X-Ray 01/23/19 21:55 CONCLUSION: No acute cardiopulmonary disease Knee X-Ray 01/24/19 00:00 CONCLUSION: Patellar fracture. Discharge Plan Discharge Disposition Patient Disposition: Discharge Home Discharge Condition Condition: Stable Discharge Order Discharge Orders: Discharge Order (Routine); Ordered 01/25/19 Ordered By: Tee Hua Hospitalist Clear for Discharge (Routine); Ordered 01/26/19 Ordered By: Dianne Ellison Orthopedic Clear for Discharge (Routine); Ordered 01/25/19 Ordered By: Tee Hua Physicians Team Primary Care Provider: Jovanni Castaneda III Attending Provider: Dianne Ellison Other Providers: Katalina Garcia Rxs /Orders / Referrals /Forms Prescriptions: New hydrocodone-acetaminophen [[place]] 5-325 mg tablet 1 tab PO Q6H Qty: 10 RF: 0 aspirin 81 mg tablet,chewable 81 mg PO BID 30 Days Qty: 60 RF: 0 Continue omeprazole magnesium [Prilosec OTC] 20 mg Tablet,Delayed Release (Dr/Ec) 20 mg PO DAILY RF: 0 Ambulatory Orders / Order Sets / DME: Walker With Front Wheels (1 each) (Routine) Location: Determined by Patient Ordered By: Tee Hua Referrals: Jovanni Castaneda III, MD [Primary Care Provider] - See Instructions Tee Hua MD [Physician] - See Instructions (Schedule follow-up with my PA in 2 weeks. Schedule appointment before patient is discharged) Status ED Status: Left Department
[2019-01-26 14:42] VITALS: BP 140/67; PULSE 73; RESP 18; TEMP 97.9; O2SAT 98
== END 2019-01-26 16:33 | disposition home or self-care (01) | DRG 488 ==
LOC: NEPB 18:17 → NEDA 18:17 → NEPFCDU 01-24 00:28 → N06 01-24 15:12
PROVIDERS: ADMIT Internal Medicine; ATTEND Internal Medicine
PROC: ORIFPAT (2019-01-24 16:24)
CPT/HCPCS: 71010; 71045; 73560; 73564; 76000; 80048; 80053; 85025; 85027; 85610; 85730; 86850; 86900; 86901; 90471; 90702; 90714; 90718; 90774; 90784; 93005; 96374; 96375; 97110; 97162; 97530; 99285; C8952; G0378; J0690; J1100; J1170; J1580; J2175; J2270; J2370; J2405; J2704; J2795; J3010; J7030; J7120; L1830